=== PATIENT | male | born 2005 | race Caucasian/White ===

== ENCOUNTER 2024-04-28 08:00 | Outpatient (RCR) | payer BC, SELFPAY | END 2024-08-26 23:59 | disposition home or self-care (01) | PROVIDERS: PCP Family Medicine; Visit Provider Family Medicine | DX: S76.311A Strain of muscle, fascia and tendon of the posterior muscle group at thigh level, right thigh, initial encounter (principal); M85.30 Osteitis condensans, unspecified site; M25.552 Pain in left hip; Z51.89 Encounter for other specified aftercare | CPT/HCPCS: 97110; 97161; 97530 ==